=== PATIENT | female | born 1980 | race Hispanic/Latino ===

== ENCOUNTER → 2024-03-25 | Day surgery (SDC) | payer BC ==
[2024-03-24 09:28] LABS: CREATININE, SERUM 0.67 mg/dL (0.57-1.11)
[~2024-03-25] MED LIST: ACETAMINOPHEN 1000 MG/100 ML 100 ML IV ONE; DEXAMETHASONE SOD PHOS INJ 4 MG/ML SDV ONE; FENTANYL CITRATE/PF 100MCG/2 ML INJ ONE; IRON325 M1 PO; KETOROLAC TROMETHAMINE 30 MG/ML VIAL ONE; LIDOCAINE HCL 2% LOCAL INJ 5 ML SDV VIAL INJ ONE; LOSARTAN POTASS25 MG PO; MISOPROSTOL100 MCG PO; ONDANSETRON HCL INJ 2MG/ML 2ML 2 MG/ML VIAL ONE; OZEMPIC2 MG/0.75 SQ; PREVACID30 MG PO; PROPOFOL IV EMULSION 10 MG/ML 20 ML VIAL ONE; SEVOFLURANE INHAL SOLN 250 ML PEN BTL ONE; TIZANIDINE HCL4 MG PO
[2024-03-25] MEDS: DEXTROSE 5% 250ML 250 ML IV ONE (11:32)
[2024-03-25] MEDS: LACTATED RINGER'S 1,000 ML ONE (11:32)
[2024-03-25] MEDS: HYDROCODONE/APAP 5MG-325MG TAB ONE (15:30)
[2024-03-25 16:00] VITALS: BP 117/89; PULSE 77; RESP 17; TEMP 97.2; O2SAT 99
== END | disposition home or self-care (01) ==
LOC: OR 08:04
PROVIDERS: ATTEND Specialist
DX: N71.1 Chronic inflammatory disease of uterus (principal); N80.9 Endometriosis, unspecified; N92.6 Irregular menstruation, unspecified; D50.0 Iron deficiency anemia secondary to blood loss (chronic); E11.9 Type 2 diabetes mellitus without complications; I10 Essential (primary) hypertension; K21.9 Gastro-esophageal reflux disease without esophagitis; F41.9 Anxiety disorder, unspecified; Z01.810 Encounter for preprocedural cardiovascular examination; Z01.812 Encounter for preprocedural laboratory examination; Z79.85 Long-term (current) use of injectable non-insulin antidiabetic drugs; Z79.899 Other long term (current) drug therapy; Z87.891 Personal history of nicotine dependence
CPT/HCPCS: 36415 ×2; 58558; 76830; 76856; 80048; 81025; 82948; 88305; 88342; 93005; J0131; J0690; J1100; J1885; J2003; J2405; J2704; J3010; J7121